=== PATIENT | male | born 1995 | race Caucasian/White ===

== ENCOUNTER 2016-06-07 21:27 | Emergency (ER) | payer OTHER ==
--- NOTE | ~2016-06-07 | CR172 ---
[facility]. 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 Ordering Physician: Fidelia Wright A.P.R.N. Primary Care Physician: No Primary Care Physician MEDICAL IMAGING REPORT This report is preliminary unless electronic signature is present. EXAM Left knee, 3 views. DATE OF EXAM 06/07/2016 HISTORY Left knee pain laterally. Injured knee while playing soccer yesterday. FINDINGS AP and lateral projection of the knee shows smooth articular anatomy without indication of fracture or dislocation at the major weight-bearing surface of the knee. There is no indication of radiopaque foreign body about the knee surface or joint effusion. IMPRESSION Normal left knee. Dictated by... Cesar Ronquillo M.D. THIS IS AN ELECTRONICALLY VERIFIED REPORT Cesar Ronquillo M.D. at 06/08/2016 2:21 PM ARACELI/ellie TD: 06/07/2016 23:03 JOB #: [id number] MEDICAL IMAGING REPORT Page 1 of 1
[~2016-06-07 21:27] MED LIST: BACTRIM DS TABL1 TA1 PO; NO MEDICATIONS
== END 2016-06-07 22:43 | disposition home or self-care (01) ==
LOC: SED 21:27
DX: S83.92XA Sprain of unspecified site of left knee, initial encounter (principal); W18.30XA Fall on same level, unspecified, initial encounter; Y93.66 Activity, soccer; Y92.830 Public park as the place of occurrence of the external cause
CPT/HCPCS: 29530; 73562; 99283